=== PATIENT | male | born 1965 | race Caucasian/White ===

== ENCOUNTER → 2017-04-18 | Outpatient (CLI) | payer OTHER ==
[~2017-04-18] MED LIST: MONT1TAB3 PO
[2017-04-18 10:33] LABS: BASO % 0.2 %; BASO ABS # 0.01 K/uL (0-0.2); COMPLETE YES; EOS % 1.9 %; HEMATOCRIT 40.3 % (42-52); LYMPH % 22.4 %; LYMPH ABS # 1.06 K/uL (1.2-3.4); MEAN CELL VOLUME 78.6 fL (80-100); MEAN CORPUSCULAR HEMOGLOBIN 24.6 pg (25-34); MEAN CORPUSCULAR HGB CONC 31.3 g/dl (32-36); MEAN PLATELET VOLUME 9.4 fL (7.4-10.4); MONO % 17.3 %; NEUT % 58.2 %; PLATELET COUNT 294 K/uL (130-400); RED BLOOD COUNT 5.13 M/uL (4.7-6.1); WHITE BLOOD COUNT 4.74 K/uL (4.8-10.8)
[2017-04-18 10:45] LABS: ALT/SGPT 34 U/L (12-78); AST/SGOT 26 U/L (15-37); BLOOD UREA NITROGEN 19 mg/dl (7-18); BUN/CREATININE RATIO 14.3 (10-20); CARBON DIOXIDE 31 mmol/L (21-32); CHLORIDE 105 mmol/L (98-107); GLUCOSE 96 mg/dl (70-99); POTASSIUM 4.2 mmol/L (3.5-5.1); SODIUM 138 mmol/L (136-145)
[2017-04-18 10:47] LABS: ALB/GLOB RATIO 1.1 (0.9-2); ALKALINE PHOSPHATASE 74 U/L (45-117); CHOLESTEROL 136 mg/dl (0-200); CHOLESTEROL/HDL RATIO 4.1; HDL CHOLESTEROL 33 mg/dl; LDL CHOLESTEROL CALCULATED 84 mg/dl; TRIGLYCERIDES 97 mg/dl (0-150); VERY LOW DENSITY LIPOPROT CALC 19 mg/dl
== END | disposition home or self-care (01) ==
LOC: C.LAB 09:37
PROVIDERS: ATTEND Physician Assistant Medical
DX: Z00.00 Encounter for general adult medical examination without abnormal findings (principal)

== ENCOUNTER → 2017-04-29 | Outpatient (CLI) | payer OTHER | END | disposition home or self-care (01) | LOC: C.RDSM 14:13 | PROVIDERS: ATTEND Physical Medicine & Rehabilitation Sports Medicine | DX: M17.12 Unilateral primary osteoarthritis, left knee (principal) ==

== ENCOUNTER → 2017-10-01 | Outpatient (CLI) | payer OTHER ==
[2017-10-01 12:50] LABS: BASO % 0.2 %; BASO ABS # 0.01 K/uL (0-0.2); EOS ABS # 0.08 K/uL (0-0.5); HEMATOCRIT 40.7 % (42-52); HEMOGLOBIN 13.3 g/dL (14.0-18.0); IG# 0.01 K/uL (0.00-0.02); LYMPH % 27.1 %; MEAN CELL VOLUME 77.7 fL (80-100); MEAN CORPUSCULAR HEMOGLOBIN 25.4 pg (25-34); MEAN CORPUSCULAR HGB CONC 32.7 g/dl (32-36); MEAN PLATELET VOLUME 9.8 fL (7.4-10.4); MONO % 12.6 %; MONO ABS # 0.51 K/uL (0.11-0.59); NEUT % 57.9 %; NEUT ABS # 2.35 K/uL (1.4-6.5); PLATELET COUNT 302 K/uL (130-400); RED CELL DISTRIBUTION WIDTH CV 15.3 % (11.5-14.5); RED CELL DISTRIBUTION WIDTH SD 43.1 fL (36.4-46.3); WHITE BLOOD COUNT 4.06 K/uL (4.8-10.8)
== END | disposition home or self-care (01) ==
LOC: C.LABBFT 08:55
PROVIDERS: ATTEND Physician Assistant Medical
DX: D64.9 Anemia, unspecified (principal); Z12.5 Encounter for screening for malignant neoplasm of prostate

== ENCOUNTER → 2017-11-01 | Day surgery (SDC) | payer OTHER ==
[2017-10-21 10:43] VITALS: BMI 34.0
[~2017-11-01] VITALS: Ht 185.4 cm; Wt 118.2 kg
[~2017-11-01] MED LIST changes: +ATOR10TA82 PO; +EpHEDrine SULFATE 50MG/5ML SYR ONE; +FENTANYL CITRATE INJ 50 MCG/1 ML 2 ML VIAL ONE; +LIDOCAINE HCL 2% 2 ML VIAL (20MG/ML) ONE; +MIDAZOLAM HCL 1 MG/ML 2ML VIAL ONE; -MONT1TAB3 PO; +PROPOFOL IV EMULSION 10 MG/ML 20 ML VIAL IV ONE; +SODIUM CHLORIDE 0.9% 500ML 500 ML IV ONE
[2017-11-01 07:38] VITALS: Ht 185.4 cm; Wt 118.2 kg
[2017-11-01 07:43] VITALS: TEMP 36.2
--- NOTE | 2017-11-01 08:13 | Endo History and Physical ---
History & Physical Date of Service: Nov 01, 2017. Chief Complaint: IRON DEFICIENCY ANEMIA Referring Physician: DR. ALEXIS GOMEZ History of Present Illness 52 yo CM who presents for EGD and colonoscopy secondary to iron deficiency anemia. Past Surgical History Hx Cardiac Surgery: No Hx Internal Defibrillator: No Hx Pacemaker: No Hx Abdominal Surgery: No Hx of Implantable Prosthesis: No Hx Post-Op Nausea and Vomiting: No Hx Cancer Surgery: No Hx Thoracic Surgery: No Hx Orthopedic: Yes (RT SHOULDER ARTHROSCOPY; LEFT HAND FINGER INDEX/MIDDLE FINGER) Hx Urinary Tract Surgery: Yes (VASECTOMY) Family History Polyp Social History Smoking Status: Never Smoker Hx Substance Use: No Hx Alcohol Use: Yes (OCCASIONALLY) Allergies Coded Allergies: Penicillins (Verified Allergy, Intermediate, RASH, 10/21/17) Current Medications Reported Home Medications Medications Dose Route/Sig Max Daily Dose Days Date Category Lipitor (Atorvastatin Calcium) 10 Mg Tab 10 Mg PO HS 10/21/17 Reported Vital Signs Weight (Kilograms): 118.18 Height (Feet): 6 Height (Inches): 1 Date Time Temp Pulse Resp B/P (MAP) Pulse Ox O2 Delivery O2 Flow Rate FiO2 11/01/17 07:43 36.2 62 18 124/77 (93) 98 Nasal Cannula Physical Exam General Appearance: WD/WN, no apparent distress Respiratory/Chest: Auscultation: breath sounds normal Cardiovascular: Heart Auscultation: RRR Abdomen: Bowel Sounds: normal Inspection & Palpation: soft, non-distended, no tenderness, guarding & rebound Assessment and Plan Assessment: 52 yo CM who presents for EGD and colonoscopy secondary to iron deficiency anemia. Plan: Proceed with EGD and colonoscopy.
--- NOTE | 2017-11-01 08:53 | Discharge Instructions ---
Endoscopy Patient Instructions Date / Procedure(s) Performed Nov 01, 2017. Colonoscopy, EGD Allergy Information Coded Allergies: Penicillins (Verified Allergy, Intermediate, RASH, 10/21/17) Discharge Date / Findings Nov 01, 2017. EGD: Duodenal biopsies Colonoscopy: Colon polyp, Diverticulosis, Internal hemorrhoids Medication Instructions OK to resume all medications today as prescribed Reported Home Medications Medications Dose Route/Sig Max Daily Dose Days Date Category Lipitor (Atorvastatin Calcium) 10 Mg Tab 10 Mg PO HS 10/21/17 Reported Provider Instructions Activity Restrictions - No exercising or heavy lifting for 24 hours. - Do not drink alcohol the day of the procedure. - Do not drive a car or operate machinery until the day after the procedure. - Do not make any important decisions or sign important papers in 24 hours after the procedure. Following Day: - Return to full activity which may include returning to work/school. Diet Start your diet with liquids and light foods (jello, soup, juice, toast). Then eat your usual diet if not nauseated. Treatment For Common After Affects For mild abdominal pain, bloating, or excessive gas: - Rest - Eat lightly - Lie on right side Follow-Up Information Follow-up with DR. ALEXIS GOMEZ as scheduled Anesthesia Information What You Should Know You have had a procedure that required some medicine to reduce anxiety and discomfort. This treatment is called moderate sedation. After receiving the treatment, you may be sleepy, but you will be able to breathe on your own. The effects of the treatment may last for several hours. Follow these instructions along with Activity/Diet recommendations noted above: * Do NOT do anything where dizziness or clumsiness would be dangerous. * Rest quietly at home today, then you can be up and about tomorrow. * Have a responsible person stay with you the rest of today. * You may have had an I.V. today. If so, you may take the dressing off later today. Recommendations Call your doctor if: * Trouble breathing * Continuous vomiting for more than 24 hours * Temperature above 101 degrees * Severe abdominal pain or bloating * Pain not relieved by pain medicine ordered * There is increased drainage or redness from any incision * A large amount of rectal bleeding greater than 2-3 tablespoons. (If you had a polyp/s removed or have hemorrhoids, a small amount of blood - from the rectum is to be expected.) * You have any unanswered questions or concerns. IN THE EVENT OF A SERIOUS EMERGENCY, GO TO THE NEAREST EMERGENCY ROOM Your discharge instructions were prepared by provider Daron Schroeder. Patient Instructions Signature Page Brayan Roche Patient (or Guardian) Signature/Date: I have read and understand the instructions given to me by my caregivers. Caregiver/RN/Doctor Signature/Date: The above-named patient and/or guardian has received patient instructions on this date. + Original Patient Signature Page (only) stays with chart. Please make copy for patient.
[2017-11-01 09:23] VITALS: BP 116/70; PULSE 53; O2SAT 98
--- NOTE | 2017-11-01 09:34 | Anesthesiology Progress Note ---
Anesthesia Post Op Note Date & Time Nov 01, 2017 at 09:34 Vital Signs Pain Intensity: 0 Vital Signs Past 12 Hours Date Time Temp Pulse Resp B/P (MAP) Pulse Ox O2 Delivery O2 Flow Rate FiO2 11/01/17 09:23 53 18 116/70 (85) 98 Room Air 11/01/17 09:08 62 16 110/83 (92) 97 Room Air 11/01/17 08:53 68 16 105/61 (76) 97 Room Air 11/01/17 07:43 36.2 62 18 124/77 (93) 98 Nasal Cannula Notes Mental Status: alert / awake / arousable, participated in evaluation Pt Amnestic to Procedure: Yes Nausea / Vomiting: adequately controlled Pain: adequately controlled Airway Patency, RR, SpO2: stable & adequate BP & HR: stable & adequate Hydration State: stable & adequate Anesthetic Complications: no major complications apparent
--- NOTE | 2017-11-05 09:26 | GI REPORT ---
Procedure Date: 11/01/2017 8:18 AM Procedure: Colonoscopy Indications: Iron deficiency anemia Medicines: Monitored Anesthesia Care Complications: No immediate complications. Estimated Blood Loss: Estimated blood loss: none. Procedure: Pre-Anesthesia Assessment: - Prior to the procedure, a History and Physical was performed, and patient medications and allergies were reviewed. The patient's tolerance of previous anesthesia was also reviewed. The risks and benefits of the procedure and the sedation options and risks were discussed with the patient. All questions were answered, and informed consent was obtained. Prior Anticoagulants: The patient has taken no previous anticoagulant or antiplatelet agents. ASA Grade Assessment: II - A patient with mild systemic disease. After reviewing the risks and benefits, the patient was deemed in satisfactory condition to undergo the procedure. After I obtained informed consent, the scope was passed under direct vision. Throughout the procedure, the patient's blood pressure, pulse, and oxygen saturations were monitored continuously. The scope was introduced through the anus and advanced to the terminal ileum. The colonoscopy was performed without difficulty. The patient tolerated the procedure well. The quality of the bowel preparation was good. The terminal ileum, ileocecal valve, appendiceal orifice, and rectum were photographed. Findings: The perianal and digital rectal examinations were normal. A 4 mm polyp was found in the ascending colon. The polyp was sessile. The polyp was removed with a hot snare. Resection and retrieval were complete. Multiple small-mouthed diverticula were found in the sigmoid colon. Non-bleeding internal hemorrhoids were found during retroflexion. The hemorrhoids were small. Impression: - One 4 mm polyp in the ascending colon, removed with a hot snare. Resected and retrieved. - Diverticulosis in the sigmoid colon. - Non-bleeding internal hemorrhoids. Recommendation: - Resume previous diet. - Continue present medications. - Repeat colonoscopy for surveillance based on pathology results. - Return to primary care physician as previously scheduled. Daron Schroeder DO 11/01/2017 8:52:01 AM This report has been signed electronically. Note Initiated On: 11/01/2017 8:18 AM I attest to the content of the Intraoperative Record and orders documented therein, exceptions below
--- NOTE | 2017-11-05 09:26 | GI REPORT ---
Procedure Date: 11/01/2017 8:18 AM Procedure: Upper GI endoscopy Indications: Iron deficiency anemia Medicines: Monitored Anesthesia Care Complications: No immediate complications. Estimated Blood Loss: Estimated blood loss: none. Procedure: Pre-Anesthesia Assessment: - Prior to the procedure, a History and Physical was performed, and patient medications and allergies were reviewed. The patient's tolerance of previous anesthesia was also reviewed. The risks and benefits of the procedure and the sedation options and risks were discussed with the patient. All questions were answered, and informed consent was obtained. Prior Anticoagulants: The patient has taken no previous anticoagulant or antiplatelet agents. ASA Grade Assessment: II - A patient with mild systemic disease. After reviewing the risks and benefits, the patient was deemed in satisfactory condition to undergo the procedure. After obtaining informed consent, the endoscope was passed under direct vision. Throughout the procedure, the patient's blood pressure, pulse, and oxygen saturations were monitored continuously. The scope was introduced through the mouth, and advanced to the second part of duodenum. The upper GI endoscopy was accomplished without difficulty. The patient tolerated the procedure well. Findings: The esophagus was normal. The stomach was normal. The examined duodenum was normal. Biopsies for histology were taken with a cold forceps for evaluation of celiac disease. Impression: - Normal esophagus. - Normal stomach. - Normal examined duodenum. Biopsied. Recommendation: - Resume previous diet. - Continue present medications. - Await pathology results. - Return to primary care physician as previously scheduled. Daron Schroeder DO 11/01/2017 8:49:27 AM This report has been signed electronically. Note Initiated On: 11/01/2017 8:18 AM I attest to the content of the Intraoperative Record and orders documented therein, exceptions below
== END | disposition home or self-care (01) ==
LOC: C.GI 07:16
PROVIDERS: ATTEND Internal Medicine
DX: D50.9 Iron deficiency anemia, unspecified (principal); D12.2 Benign neoplasm of ascending colon; K57.30 Diverticulosis of large intestine without perforation or abscess without bleeding; K64.8 Other hemorrhoids; E66.9 Obesity, unspecified; Z68.34 Body mass index [BMI] 34.0-34.9, adult; Z86.718 Personal history of other venous thrombosis and embolism; Z88.0 Allergy status to penicillin

== ENCOUNTER → 2017-11-27 | Outpatient (CLI) | payer OTHER ==
[~2017-11-27] MED LIST changes: -EpHEDrine SULFATE 50MG/5ML SYR ONE; -FENTANYL CITRATE INJ 50 MCG/1 ML 2 ML VIAL ONE; -LIDOCAINE HCL 2% 2 ML VIAL (20MG/ML) ONE; -MIDAZOLAM HCL 1 MG/ML 2ML VIAL ONE; -PROPOFOL IV EMULSION 10 MG/ML 20 ML VIAL IV ONE; -SODIUM CHLORIDE 0.9% 500ML 500 ML IV ONE
--- NOTE | 2017-11-27 08:32 | DIAGNOSTIC IMAGING REPORT ---
RIGHT LOWER EXTREMITY VENOUS DOPPLER HISTORY: Right leg pain. COMPARISON STUDY: None. FINDINGS: There is normal compressibility, flow, and augmentation within the right lower extremity deep venous system. Occlusive thrombus within the majority of the right greater saphenous vein extending from the level of the ankle to approximately 9 cm from the common femoral vein. IMPRESSION: No DVT within the right lower extremity. Occlusive thrombus within the majority of the right greater saphenous vein. Electronically signed by: Mati Nascimento M.D. 11/27/2017 8:30 AM Dictated Date/Time: 11/27/2017 8:27 AM
== END | disposition home or self-care (01) ==
LOC: C.ULTRBC 08:01
PROVIDERS: ATTEND Internal Medicine
DX: I82.811 Embolism and thrombosis of superficial veins of right lower extremity (principal); D64.9 Anemia, unspecified

== ENCOUNTER → 2018-04-10 | Outpatient (CLI) | payer OTHER ==
[2018-04-10 12:29] LABS: BASO % 0.2 %; BASO ABS # 0.01 K/uL (0-0.2); EOS % 2.4 %; EOS ABS # 0.12 K/uL (0-0.5); HEMATOCRIT 38.7 % (42-52); HEMOGLOBIN 12.6 g/dL (14.0-18.0); IG# 0.01 K/uL (0.00-0.02); LYMPH % 27.1 %; LYMPH ABS # 1.38 K/uL (1.2-3.4); MEAN CORPUSCULAR HEMOGLOBIN 26.4 pg (25-34); MEAN CORPUSCULAR HGB CONC 32.6 g/dl (32-36); MEAN PLATELET VOLUME 9.6 fL (7.4-10.4); MONO % 13.9 %; MONO ABS # 0.71 K/uL (0.11-0.59); NEUT % 56.2 %; NEUT ABS # 2.87 K/uL (1.4-6.5); PLATELET COUNT 262 K/uL (130-400); RED CELL DISTRIBUTION WIDTH CV 14.4 % (11.5-14.5); RED CELL DISTRIBUTION WIDTH SD 42.8 fL (36.4-46.3)
[2018-04-10 13:55] LABS: ALBUMIN 3.7 gm/dl (3.4-5.0); ALKALINE PHOSPHATASE 68 U/L (45-117); ALT/SGPT 35 U/L (12-78); AST/SGOT 30 U/L (15-37); BLOOD UREA NITROGEN 23 mg/dl (7-18); CALCIUM 8.7 mg/dl (8.5-10.1); CARBON DIOXIDE 26 mmol/L (21-32); CHOLESTEROL 136 mg/dl (0-200); CREATININE 1.37 mg/dl (0.60-1.40); GLUCOSE 86 mg/dl (70-99); LDL CHOLESTEROL CALCULATED 84 mg/dl; SODIUM 139 mmol/L (136-145); TOTAL PROTEIN 7.1 gm/dl (6.4-8.2); TRANSFERRIN 333 mg/dl (200-360)
== END | disposition home or self-care (01) ==
LOC: C.LABBFT 07:33
PROVIDERS: ATTEND Physician Assistant Medical
DX: D64.9 Anemia, unspecified (principal); E78.5 Hyperlipidemia, unspecified

== ENCOUNTER 2018-11-27 12:01 | Inpatient (IN) ==
[2018-11-27] MEDS ORDERED: HYDROmorphone INJ 0.5 MG/0.5 ML SYR IV STA (12:21)
[2018-11-27] MEDS ORDERED: ONDANSETRON INJ 2 MG/ML 2 ML VIAL IV STA (12:21)
[2018-11-27] MEDS ORDERED: SODIUM CHLORIDE 0.9% 1000ML 1,000 ML IV SCH (12:30)
[2018-11-27 12:41] LABS: Basophils # (auto) 0.01 K/uL (0-0.2); Basophils % (auto) 0.2 %; Eosinophils # (auto) 0.02 K/uL (0-0.5); Eosinophils % (auto) 0.3 %; Hemoglobin 13.7 g/dL (14.0-18.0); Immature Granulocytes # (auto) 0.01 K/uL (0.00-0.02); Immature Granulocytes % (auto) 0.2 %; Lymphocytes # (auto) 0.68 K/uL (1.2-3.4); Lymphocytes % (auto) 10.9 %; Mean Corpuscular Hgb Conc 34.3 g/dL (32-36); Mean Corpuscular Volume 74.8 fL (80-100); Mean Platelet Volume 9.4 fL (7.4-10.4); Monocytes # (auto) 0.64 K/uL (0.11-0.59); Monocytes % (auto) 10.3 %; Neutrophils # (auto) 4.86 K/uL (1.4-6.5); Neutrophils % (auto) 78.1 %; Platelet Count 301 K/uL (130-400); RDW Coefficient of Variation 20.5 % (11.5-14.5); RDW Standard Deviation 55.5 fL (36.4-46.3); Red Blood Count 5.35 M/uL (4.7-6.1); White Blood Count 6.22 K/uL (4.8-10.8)
[2018-11-27 13:00] LABS: Albumin Level 4.1 gm/dl (3.4-5.0); Anisocytosis Present; BUN Creatinine Ratio 8.8 (10-20); Calcium 9.6 mg/dl (8.5-10.1); Creatinine Clr Calc Pharmacy 75.2 ml/min; Est GFR (African American) 59.7; Est GFR (Non-African American) 51.5; Ovalocytes 1+; Poikilocytosis Present; Potassium 3.6 mmol/L (3.5-5.1)
[2018-11-27 13:03] LABS: Albumin Globulin Ratio 1.2 (0.9-2); Bilirubin,Total 0.5 mg/dl (0.2-1); Globulin 3.6 gm/dl (2.5-4.0); Total Protein 7.7 gm/dl (6.4-8.2)
--- NOTE | 2018-11-27 13:26 | CT Scan Report ---
ABDOMEN AND PELVIS CT WITHOUT CONTRAST CT DOSE: 866.98 mGy.cm HISTORY: Acute postoperative vomiting. Reported history was several weeks prior. History of recent je junal GIST excision with jejunojejunal anastomosis. vomiting post op eval for obstruction TECHNIQUE: Multiaxial CT images of the abdomen and pelvis were performed without contrast. A dose lo wering technique was utilized adhering to the principles of ALARA. COMPARISON STUDY: Small bowel follow-through study 11/26/2018, MR enterography 09/04/2018, CT 01/17/2018. FINDINGS: Lung bases are generally clear. There is no pneumatosis or pneumoperitoneum. Imaged inferior cardiac chambers are unremarkable with minimal coronary arterial calcifications and trace pericardial effusio n. Gallbladder, liver, spleen and adrenal glands are unremarkable. 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 There is no pancreatic or biliary ductal dilation identified. There is mild nonspecific bilateral perinephric str anding. Kidneys, ureters, prostate and urinary bladder are otherwise unremarkable. Aorta and IVC are within normal limits. No adenopathy. There is retained contrast noted throughout the large and small bowel from yesterday's small bowel fo llow-through study. Hyperdense material is also noted within the gastric lumen and duodenum. There ar e several dilated loops of small bowel about the mid and lower abdomen and pelvis measuring up to 4.0 cm which demonstrate mild wall thickening, mild perienteric stranding and trace interloop edema. The large bowel is predominately decompressed. Colonic diverticulosis. Appendix appears noninflamed. Sut ure material is noted within small bowel of the abdominal left lower quadrant. This appears to be the area of transition from dilated to decompressed small bowel (image 271 series 3) and also nicely see n on the coronal and sagittal images. Surgical scar about the ventral anterior abdomen. Bones appear to be intact. There is an unchanged 2. 3 cm sclerotic lesion of the proximal left femur which is likely benign. Spondylitic spurring and fac et arthrosis of the spine. IMPRESSION: 1. Postoperative changes from a partial small bowel resection with jejunal jejunal anastomosis. 2. Small bowel distention with transition point at the anastomotic site within the left midabdomen ulrich ggestive of partial small bowel obstruction. Associated small bowel wall thickening with perienteric inflammation and mild interloop edema is likely reactive. 3. No pneumatosis or pneumoperitoneum identified. 4. Colonic diverticulosis. Electronically signed by: Macario Salas M.D. 11/27/2018 1:24 PM
--- NOTE | 2018-11-27 13:53 | History & Physical Report ---
Date of Service November 27, 2018 Assessment & Plan (1) Partial small bowel obstruction: Patient is has this partial small bowel obstruction likely related to previous surgery on November 06 where he had a small bowel resection and reanastomosis. He does have some contrast that makes it through to the colon so it is not a complete bowel obstruction although the patient's symptoms are significant he did vomit undigested food products from one day prior. Patient will be kept n.p.o. except chips or sips of pain controlled with intravenous antiemetics and pain medications. And will be hydrated with normal saline containing potassium. After discussion with general surgical on-call he is recommending we give 1 dose of dexamethasone stable condition the inflammation Dr. Garcia did visit the patient in the emergency department and is not anxious to proceed with surgical intervention at this time feeling that this is the highest time for surgical inflammation causing a tight area based upon swelling. 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 He is been on Multitak and Xarelto since that time. With the upcoming surrounding surgery and was recommend that he maintain the Xarelto even though he is been in sinus rhythm. The patient has a significant family history of her mother with a pulmonary embolism felt to be induced by hormones a daughter who had a pulmonary embolism although negative thrombophilia screen in 2 maternal aunts both who had a thrombophilia surrounding cancer. Given his previous superficial thrombophlebitis and his current diagnosis of gastric was recommended he stay on Xarelto. Xarelto however is held at this time in lieu of instituting heparin therapy on 11/28 in the outside chance he would need a surgical intervention History of Present Illness Primary Care Provider: Tano Pete MD This patient presents with intractable nausea vomiting associate with partial bowel obstruction. Patient had small bowel resection on November 06 at [facility] for a GI ST tumor of the small bowel which was 3.8 cm he had a estevan postoperative course requiring an NG tube placed to. He released from the hospital 6 days after his initial surgery but has had intermittent nausea since that time. Today he vomited undigested foodstuffs from [address] scan performed in the ER did confirm a partial small bowel obstruction. The patient did require parenteral pain control and antiemetics. Patient is lost 18 pounds and is been unable to adequately keep down p.o. intake. Patient be kept overnight for hydration and retrial of oral intake with the surgical consultation Allergies Allergy/AdvReac Type Severity Reaction Status Date / Time Penicillins Allergy Intermediate RASH Verified 11/27/18 12:58 Home Medications Home Medications Medication Instructions Recorded Confirmed Type Xarelto 20 mg PO DAILY 07/08/18 11/27/18 History atorvastatin 10 mg PO HS 07/08/18 11/27/18 History dronedarone [Multaq] 400 mg PO DAILY 11/27/18 11/27/18 History Past Med/Surg History Medical History Anemia IRON DEFICIENCY Atrial fibrillation Hyperlipidemia Superficial thrombophlebitis of both legs H/O Surgical History H/O colonoscopy with polypectomy History of arthroscopy RIGHT SHOULDER History of colonoscopy History of nasal septoplasty Social History Preferred Language: Japanese Beliefs That Will Affect Care: None Current Living Situation: Spouse Feels Safe at Home: Yes Smoking Status: Never smoker Hx Alcohol Use: Yes Hx Substance Use: No Review of Systems ROS: well nourished well developed. No double vision blurry vision No problems with speech or swallowing No palpitations, chest pain or pressure No Wheezing or breathing issues Centralized abdominal pain with nausea and vomiting of undigested foodstuffs. Only small amounts of flatus No burning urine urine frequency or changes in color No focal joint pain or muscle pain No skin rashes or oral lesions No unusual bruising or bleeding No focused back pain or numbness or loss of strength No changes in memory or confusion Physical Exam Vital Signs (Past 24 Hours): Last Vital Signs Pulse 72 11/27/18 13:01 Resp 14 11/27/18 13:01 BP 122/76 11/27/18 13:01 Pulse Ox 100 11/27/18 13:01 The patient appeared well nourished and normally developed. Vital signs as documented. Head exam is unremarkable. normocephalic, atraumatic Neck is without jugular venous distension, thyromegaly, or lymphademopathy Lungs are clear to auscultation and percussion. Cardiac exam reveals Rhythm is regular. First and second heart sounds normal. Abdominal exam reveals hyperactive bowel sounds, tympanitic distended well- healed surgical scars Extremities are nonedematous and both pedal pulses are present Neurologic exam is A&Ox3, no focal deficits, strength is equal bilateral Psychologically seems neither anxious or depressed Skin is warm Dry without bruises or lesions Results & Data Diagnostic Findings CT abdomen pelvis . 1. Postoperative changes from a partial small bowel resection with jejunal jejunal anastomosis. 2. Small bowel distention with transition point at the anastomotic site within the left midabdomen suggestive of partial small bowel obstruction. Associated small bowel wall thickening with perienteric inflammation and mild interloop edema is likely reactive. 3. No pneumatosis or pneumoperitoneum identified. 4. Colonic diverticulosis.
--- NOTE | 2018-11-27 14:47 | Surgery Consultation ---
Date of Consultation November 27, 2018 Assessment & Plan (1) Partial small bowel obstruction: Patient is approximately 3 weeks postop. Could be postop edema at the anastomotic site. Would recommend conservative therapy for at least another 2-3 weeks if possible. We will keep him n.p.o. with ice chips today and repeat his KUB tomorrow. As symptoms improve we will try a clear liquid diet. We discussed that he may need revision of the anastomosis but would wait at least another 2-3 weeks. Patient agreeable to the plan. We will also give a couple doses of Decadron. We will follow along closely. (2) Gastrointestinal stromal tumor (GIST): History of Present Illness History of Present Illness Patient is here about 3 weeks status post laparoscopic small bowel resection for a gist tumor. He has had intermittent issues ever since primarily with abdominal distention nausea food intolerance with occasional vomiting. He presents to the ER today with abdominal distention and one bout of emesis. He was having some discomfort but that has since improved. He has been having intermittent flatus and bowel movements although certainly not back to normal yet. Allergies Allergy/AdvReac Type Severity Reaction Status Date / Time Penicillins Allergy Intermediate RASH Verified 11/27/18 12:58 Home Medications Home Medications Medication Instructions Recorded Confirmed Type Xarelto 20 mg PO DAILY 07/08/18 11/27/18 History atorvastatin 10 mg PO HS 07/08/18 11/27/18 History dronedarone [Multaq] 400 mg PO DAILY 11/27/18 11/27/18 History Patient History Medical History Anemia IRON DEFICIENCY Atrial fibrillation Hyperlipidemia Superficial thrombophlebitis of both legs H/O Surgical History H/O colonoscopy with polypectomy History of arthroscopy RIGHT SHOULDER History of colonoscopy History of nasal septoplasty Social History Preferred Language: Croatian Beliefs That Will Affect Care: None Current Living Situation: Spouse Feels Safe at Home: Yes Smoking Status: Never smoker Hx Alcohol Use: Yes Hx Substance Use: No Review of Systems Constitutional: + weight loss Gastrointestinal: as per Subjective / HPI, + bloating, + nausea and + cramping Physical Exam Vital Signs (Past 24 Hours): Last Vital Signs Pulse 72 04/11/19 14:30 Resp 22 11/27/18 14:30 BP 135/84 11/27/18 14:30 Pulse Ox 96 11/27/18 14:30 Physical Exam: Alert and oriented x3 no acute distress. HEENT: Dry MM's. Heart: RRR Lungs: CTA b/l abd: soft. mild distension. wounds a c/d/i. no sign of infection ext: no c/c/e
[2018-11-27 14:59] LABS: Appearance Urine Clear (Clear); Bacteria Urine Automated Negative (Negative); Bilirubin Urine Negative (Negative); Blood Urine Negative (Negative); Color Urine Dark Yellow; Glucose Urine UA Negative (Negative); Ketones Urine Trace (Negative); Leukocyte Esterase Urine Negative (Negative); Nitrite Urine Negative (Negative); RBC Urine Automated 0-4 /hpf (0-4); Urobilinogen Urine Negative (Negative)
[2018-11-27 15:03] LABS: Protein Urine Trace (Negative)
[2018-11-27] MEDS ORDERED: HYDROmorphone INJ 1 MG/ML SYRINGE IV PRN (16:05)
[2018-11-27] MEDS ORDERED: ONDANSETRON INJ 2 MG/ML 2 ML VIAL IV PRN (16:05)
[2018-11-27] MEDS ORDERED: PROMETHAZINE HCL 12.5 MG in SODIUM CHLORIDE 0.9% 50 ML IV PRN (16:05)
[2018-11-27] MEDS ORDERED: HYDROmorphone INJ 0.5 MG/0.5 ML SYR IV PRN (16:05)
[2018-11-27] MEDS ORDERED: DEXAMETHASONE SOD PHOSPHATE 4 MG in SYRINGE 0 ML IV ONE (16:30)
[2018-11-27] MEDS: NSS + 20MEQ KCL 20 MEQ/1,000 ML BAG IV SCH (16:52)
--- NOTE | 2018-11-27 19:21 | Emergency Department Note ---
Entered by Yash Paredes acting as a scribe for History of Present Illness General Chief complaint: Abdominal Pain Stated complaint: abd pain Source: patient Mode of arrival: ambulatory History of Present Illness Provider complaint: Abdominal Pain Onset (ago): day(s) 6 Location: abdomen Severity: severe Pain Consistency: + constant Associated symptoms: no chest pain, no fever/chills and no shortness of breath Patient is a 53 year old male who presents himself to the ER with complain of abdominal pain beginning 6 days ago. Patient recently had a gastrointestinal tumor resected at [facility] 3 week ago. Post operation patient states medical staff thought he had an ileus. Beginning this last Saturday he started having symptoms of vomiting. Patient was discharged home 6 days post operation and states he has been having severe abdominal pain since then. Patient states the pain is specifically in the epigastric region. Patient states that this last Saturday he went to a basketball game and again the intense pain came back in waves. He notes the pain to be like cramps in nature. Patient rep orts having liquid type stool. Since morning of today he states he has not had a bowel movement and that he had another episode of vomiting before he came to the ER which made him feel slightly better. Patient denies fever, chest pain and SOB. Home Medications Home Medications Medication Instructions Recorded Confirmed Type Xarelto 20 mg PO DAILY 07/08/18 11/27/18 History atorvastatin 10 mg PO HS 07/08/18 11/27/18 History dronedarone [Multaq] 400 mg PO DAILY 11/27/18 11/27/18 History Allergies Allergy/AdvReac Type Severity Reaction Status Date / Time Penicillins Allergy Intermediate RASH Verified 11/27/18 12:58 Past Med/Surg History Medical History Anemia IRON DEFICIENCY Atrial fibrillation Hyperlipidemia Superficial thrombophlebitis of both legs H/O Surgical History H/O colonoscopy with polypectomy History of arthroscopy RIGHT SHOULDER History of colonoscopy History of nasal septoplasty Social History Preferred Language: Tajik Communication Ability: Effective Sound Mixer Required: No Beliefs That Will Affect Care: None Current Living Situation: Spouse Feels Safe at Home: Yes Safety Concerns: Feels Safe At This Time Smoking Status: Never smoker Hx Alcohol Use: Yes Hx Substance Use: No Review of Systems See HPI for pertinent positives & negatives. and A total of 10 systems reviewed and were otherwise negative Physical Exam Vital Signs Vital Signs - 24 hr 11/27/18 12:11 11/27/18 12:36 11/27/18 13:01 Temperature Temperature Source Oral Sepsis Recent Fever Within 48 Hours No Sepsis Action Taken by Nursing No Action Required Pulse Rate 93 H 72 Pulse Rate [Apical] 78 Pulse Rate [Right Finger] Pulse Rate from SpO2 Sensor 74 Pulse Rhythm Regular Pulse Rhythm [Right Finger] Pulse Strength Normal Pulse Strength [Right Finger] Respiratory Rate 16 19 14 Respiratory Effort / Characteristics Non-Labored Respiratory Depth Normal Normal Respiratory Pattern Regular Blood Pressure 126/80 122/76 Blood Pressure [Left Arm] 127/90 Blood Pressure Mean 95 91 Blood Pressure Mean [Left Arm] 102 Blood Pressure Position Sitting Blood Pressure Position [Left Arm] Pulse Oximetry 100 100 100 Oxygen Delivery Method Room Air Room Air Room Air 11/27/18 13:30 11/27/18 14:00 11/27/18 14:30 Temperature Temperature Source Sepsis Recent Fever Within 48 Hours Sepsis Action Taken by Nursing Pulse Rate 70 73 72 Pulse Rate [Apical] Pulse Rate [Right Finger] Pulse Rate from SpO2 Sensor 71 73 72 Pulse Rhythm Pulse Rhythm [Right Finger] Pulse Strength Pulse Strength [Right Finger] Respiratory Rate 15 24 22 Respiratory Effort / Characteristics Respiratory Depth Respiratory Pattern Blood Pressure 130/80 122/82 135/84 Blood Pressure [Left Arm] Blood Pressure Mean 96 95 101 Blood Pressure Mean [Left Arm] Blood Pressure Position Blood Pressure Position [Left Arm] Pulse Oximetry 94 96 96 Oxygen Delivery Method Room Air Room Air Room Air 11/27/18 15:00 11/27/18 15:31 11/27/18 16:10 Temperature 36.7 C Temperature Source Oral Sepsis Recent Fever Within 48 Hours Sepsis Action Taken by Nursing Pulse Rate 72 73 Pulse Rate [Apical] Pulse Rate [Right Finger] 68 Pulse Rate from SpO2 Sensor 74 Pulse Rhythm Pulse Rhythm [Right Finger] Regular Pulse Strength Pulse Strength [Right Finger] Normal Respiratory Rate 16 17 20 Respiratory Effort / Characteristics Non-Labored Spontaneous Respiratory Depth Normal Respiratory Pattern Regular Blood Pressure 136/89 129/81 Blood Pressure [Left Arm] 125/81 Blood Pressure Mean 104 97 Blood Pressure Mean [Left Arm] 95 Blood Pressure Position Blood Pressure Position [Left Arm] Lying Pulse Oximetry 94 98 Oxygen Delivery Method Room Air Room Air 11/27/18 16:15 Temperature Temperature Source Sepsis Recent Fever Within 48 Hours Sepsis Action Taken by Nursing Pulse Rate Pulse Rate [Apical] Pulse Rate [Right Finger] Pulse Rate from SpO2 Sensor Pulse Rhythm Pulse Rhythm [Right Finger] Pulse Strength Pulse Strength [Right Finger] Respiratory Rate Respiratory Effort / Characteristics Non-Labored Spontaneous Respiratory Depth Normal Respiratory Pattern Regular Blood Pressure Blood Pressure [Left Arm] Blood Pressure Mean Blood Pressure Mean [Left Arm] Blood Pressure Position Blood Pressure Position [Left Arm] Pulse Oximetry Oxygen Delivery Method Room Air Constitutional: Vital signs reviewed. Eyes: Pupils are equal round reactive to light. Conjunctiva are noninjected. ENT: Pharynx is clear without erythema or exudate. Mucous membranes are dry. Neck supple without meningeal signs. Respiratory: Clear to auscultation bilaterally. Breath sounds are equal bilaterally. Cardiovascular: Regular rate and rhythm. No rubs or gallops. GI: Diffusely tender with tympany, increased bowel sounds, laparoscopic scars, CDI Bowel sounds are present. Musculoskeletal: No peripheral edema. No lower extremity tenderness. Integumentary: No cyanosis. Neurological: The patient is awake and alert. No focal deficits. Psychiatric: Normal affect. Course 1210: Past medical records reviewed. The patient was evaluated in room A3, and a complete history and physical examination were performed. 1334: I reviewed test results with the patient. Patient requested that we speak to Dr. Garcia of surgery for recommendation. 1350: IVETH Dinero spoke to Dr. Roche for admission. Patient has agreed for admission and has verbalized agreement of the treatment. Consultations Consultation #1: IVETH Dinero Time: 13:50 Administered Medications Hydromorphone HCl (Dilaudid) 0.5 mg IV Q3H PRN PRN Reason: Pain Stop: 12/11/18 16:04 Last Admin: 11/27/18 16:28 Dose: 0.5 mg Documented by: [id number] Potassium Chloride/Sodium Chloride (Normal Saline W/20 Meq Kcl) 20 meq in 1,000 mls @ 125 mls/hr IV .Q8H MAXI Stop: 12/27/18 16:04 Last Admin: 11/27/18 16:52 Dose: 125 mls/hr Documented by: [id number] Discontinued Medications Hydromorphone HCl (Dilaudid) 0.5 mg IV NOW STA Stop: 11/27/18 12:22 Last Admin: 11/27/18 12:40 Dose: 0.5 mg Documented by: [id number] Sodium Chloride (Nss 1000ml) 1,000 mls @ 999 mls/hr IV .Q1H1M MAXI Stop: 11/27/18 13:30 Last Infusion: 11/27/18 13:39 Dose: 0 mls/hr Documented by: [id number] Admin: 11/27/18 12:38 Dose: 999 mls/hr Documented by: [id number] Dexamethasone Sodium Phosphate (4 mg/ Syringe) 1 mls @ 1 mls/min IV NOW ONE Stop: 11/27/18 16:31 Last Admin: 11/27/18 16:57 Dose: 1 mls/min Documented by: [id number] Ondansetron HCl (Zofran) 4 mg IV NOW STA Stop: 11/27/18 12:22 Last Admin: 11/27/18 12:38 Dose: 4 mg Documented by: [id number] Medical Decision Making Differential Diagnosis SBO, Partial obstruction, ileus, post op pain, dehydration Medical Records Attestation: I reviewed the patient's medical records. The Xray of the abdomen on November 26 showed mildly dilated loops of small bowel without obstruction. Home Medications Current Medication List: was personally reviewed by me Laboratory Data Attestation: I reviewed the patient's lab results. Result diagrams: 11/27/18 12:31 11/27/18 12:31 Lab Results 11/27/18 11/27/18 11/27/18 Range/Units 12:31 12:31 14:45 WBC 6.22 (4.8-10.8) K/uL RBC 5.35 (4.7-6.1) M/uL Hgb 13.7 L (14.0-18.0) g/dL Hct 40.0 L (42-52) % MCV 74.8 L (80-100) fL MCH 25.6 (25-34) pg MCHC 34.3 (32-36) g/dL RDW Std Deviation 55.5 H (36.4-46.3) fL RDW Coeff of Chris 20.5 H (11.5-14.5) % Plt Count 301 (130-400) K/uL MPV 9.4 (7.4-10.4) fL Immature Gran % (Auto) 0.2 % Neut % (Auto) 78.1 % Lymph % (Auto) 10.9 % Robertson % (Auto) 10.3 % Eos % (Auto) 0.3 % Baso % (Auto) 0.2 % Immature Gran # (Auto) 0.01 (0.00-0.02) K/uL Neut # (Auto) 4.86 (1.4-6.5) K/uL Lymph # (Auto) 0.68 L (1.2-3.4) K/uL Robertson # (Auto) 0.64 H (0.11-0.59) K/uL Eos # (Auto) 0.02 (0-0.5) K/uL Baso # (Auto) 0.01 (0-0.2) K/uL Poikilocytosis Present Anisocytosis Present Ovalocytes 1+ Sodium 141 (136-145) mmol/L Potassium 3.6 (3.5-5.1) mmol/L Chloride 106 (98-107) mmol/L Carbon Dioxide 27 (21-32) mmol/L Anion Gap 7.0 (3-11) BUN 14 (7-18) mg/dl Creatinine 1.53 H (0.6-1.4) mg/dl Est Cr Clr Drug Dosing 75.2 ml/min Est GFR ( Amer) 59.7 Est GFR (Non-Af Amer) 51.5 BUN/Creatinine Ratio 8.8 L (10-20) Glucose 106 H (70-99) mg/dl Calcium 9.6 (8.5-10.1) mg/dl Total Bilirubin 0.5 (0.2-1) mg/dl AST 28 (15-37) U/L ALT 69 (12-78) U/L Alkaline Phosphatase 82 (45-117) U/L Total Protein 7.7 (6.4-8.2) gm/dl Albumin 4.1 (3.4-5.0) gm/dl Globulin 3.6 (2.5-4.0) gm/dl Albumin/Globulin Ratio 1.2 (0.9-2) Lipase 187 (73-393) U/L Urine Color Urine Appearance (Clear) Urine pH (4.5-7.5) POC Urine pH 6 (4.5-7.5) Ur Specific [place] (1.000-1.030) Urine Protein (Negative) POC Urine Protein Negative (Negative) Urine Glucose (UA) (Negative) POC Ur Glucose (UA) Normal (Normal) Urine Ketones (Negative) POC Urine Ketones 1+ (Small) H (Negative) Urine Blood (Negative) POC Urine Blood Negative (Negative) Urine Nitrite (Negative) POC Urine Nitrite Negative (Negative) Urine Bilirubin (Negative) POC Urine Bilirubin Negative (Negative) Urine Urobilinogen (Negative) POC Urine Urobilinogen Normal (Normal) Ur Leukocyte Esterase (Negative) POC U Leukocyte Esteras Negative (Negative) Urine WBC (Auto) (0-5) /hpf Urine RBC (Auto) (0-4) /hpf U Hyaline Cast (Auto) (0-5) /lpf U Epithel Cells (Auto) (0-5) /lpf Urine Bacteria (Auto) (Negative) 11/27/18 Range/Units 14:45 WBC (4.8-10.8) K/uL RBC (4.7-6.1) M/uL Hgb (14.0-18.0) g/dL Hct (42-52) % MCV (80-100) fL MCH (25-34) pg MCHC (32-36) g/dL RDW Std Deviation (36.4-46.3) fL RDW Coeff of Chris (11.5-14.5) % Plt Count (130-400) K/uL MPV (7.4-10.4) fL Immature Gran % (Auto) % Neut % (Auto) % Lymph % (Auto) % Robertson % (Auto) % Eos % (Auto) % Baso % (Auto) % Immature Gran # (Auto) (0.00-0.02) K/uL Neut # (Auto) (1.4-6.5) K/uL Lymph # (Auto) (1.2-3.4) K/uL Robertson # (Auto) (0.11-0.59) K/uL Eos # (Auto) (0-0.5) K/uL Baso # (Auto) (0-0.2) K/uL Poikilocytosis Anisocytosis Ovalocytes Sodium (136-145) mmol/L Potassium (3.5-5.1) mmol/L Chloride (98-107) mmol/L Carbon Dioxide (21-32) mmol/L Anion Gap (3-11) BUN (7-18) mg/dl Creatinine (0.6-1.4) mg/dl Est Cr Clr Drug Dosing ml/min Est GFR ( Amer) Est GFR (Non-Af Amer) BUN/Creatinine Ratio (10-20) Glucose (70-99) mg/dl Calcium (8.5-10.1) mg/dl Total Bilirubin (0.2-1) mg/dl AST (15-37) U/L ALT (12-78) U/L Alkaline Phosphatase (45-117) U/L Total Protein (6.4-8.2) gm/dl Albumin (3.4-5.0) gm/dl Globulin (2.5-4.0) gm/dl Albumin/Globulin Ratio (0.9-2) Lipase (73-393) U/L Urine Color Dark Yellow Urine Appearance Clear (Clear) Urine pH 8.0 H (4.5-7.5) POC Urine pH (4.5-7.5) Ur Specific [place] 1.030 (1.000-1.030) Urine Protein Trace H (Negative) POC Urine Protein (Negative) Urine Glucose (UA) Negative (Negative) POC Ur Glucose (UA) (Normal) Urine Ketones Trace H (Negative) POC Urine Ketones (Negative) Urine Blood Negative (Negative) POC Urine Blood (Negative) Urine Nitrite Negative (Negative) POC Urine Nitrite (Negative) Urine Bilirubin Negative (Negative) POC Urine Bilirubin (Negative) Urine Urobilinogen Negative (Negative) POC Urine Urobilinogen (Normal) Ur Leukocyte Esterase Negative (Negative) POC U Leukocyte Esteras (Negative) Urine WBC (Auto) 1-5 (0-5) /hpf Urine RBC (Auto) 0-4 (0-4) /hpf U Hyaline Cast (Auto) 5-10 H (0-5) /lpf U Epithel Cells (Auto) 10-20 H (0-5) /lpf Urine Bacteria (Auto) Negative (Negative) Imaging Data Attestation: I personally reviewed and interpreted this imaging study as follows: Radiologist's Impression: Radiology results as stated below per my review and the radiologist's interpretation: ABDOMEN AND PELVIS CT WITHOUT CONTRAST CT DOSE: 866.98 mGy.cm HISTORY: Acute postoperative vomiting. Reported history was several weeks prior. History of recent jejunal GIST excision with jejunojejunal anastomosis. vomiting post op eval for obstruction TECHNIQUE: Multiaxial CT images of the abdomen and pelvis were performed without contrast. A dose lowering technique was utilized adhering to the principles of ALARA. COMPARISON STUDY: Small bowel follow-through study 11/26/2018, MR enterography 09/04/2018, CT 01/17/2018. FINDINGS: Lung bases are generally clear. There is no pneumatosis or pneumoperitoneum. Imaged inferior cardiac chambers are unremarkable with minimal coronary arterial calcifications and trace pericardial effusion. Gallbladder, liver, spleen and adrenal glands are unremarkable. 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 There is no pancreatic or biliary ductal dilation identified. There is mild nonspecific bilateral perinephric stranding. Kidneys, ureters, prostate and urinary bladder are otherwise unremarkable. Aorta and IVC are within normal limits. No adenopathy. There is retained contrast noted throughout the large and small bowel from yesterday's small bowel follow-through study. Hyperdense material is also noted within the gastric lumen and duodenum. There are several dilated loops of small bowel about the mid and lower abdomen and pelvis measuring up to 4.0 cm which demonstrate mild wall thickening, mild perienteric stranding and trace interloop edema. The large bowel is predominately decompressed. Colonic diverticulosis. Appendix appears noninflamed. Suture material is noted within small bowel of the abdominal left lower quadrant. This appears to be the area of transition from dilated to decompressed small bowel (image 271 series 3) and also nicely seen on the coronal and sagittal images. Surgical scar about the ventral anterior abdomen. Bones appear to be intact. There is an unchanged 2.3 cm sclerotic lesion of the proximal left femur which is likely benign. Spondylitic spurring and facet arthrosis of the spine. IMPRESSION: 1. Postoperative changes from a partial small bowel resection with jejunal jejunal anastomosis. 2. Small bowel distention with transition point at the anastomotic site within the left midabdomen suggestive of partial small bowel obstruction. Associated small bowel wall thickening with perienteric inflammation and mild interloop edema is likely reactive. 3. No pneumatosis or pneumoperitoneum identified. 4. Colonic diverticulosis. Electronically signed by: Macario Salas M.D. 11/27/2018 1:24 PM Dictated: 11/27/18 1303 Transcribed: 11/27/18 1303 Blood Pressure Blood Pressure Findings: Normal blood pressure MDM Narrative I did evaluate the patient as noted above. The patient is postop with significant pain and vomiting with the inability to eat. His symptoms seem consistent with a small bowel obstruction or partial obstruction. IV access was established. The patient was placed on a continuous telemetry monitor. I did treat him with Dilaudid and Zofran IV. He was also given normal saline IV. I did order and review the patient's blood work as noted in the electronic medical record. He has mild anemia. His white count is not elevated. His creatinine is elevated at 1.53. I did order a CT of the abdomen and pelvis. I did review the images myself as well as the radiology report as described above. His CAT scan is consistent with a partial bowel obstruction. I did discuss the test results with the patient. He did not wish to go back to [facility]. He wished to consult the surgeon here. We spoke to Dr. Grajeda of medicine who will hospitalize him and consult the surgeon. Impression & Plan Partial small bowel obstruction, Dehydration Discharge Plan Visit Data *Final* Discharge Date/Time: 11/27/18 15:58 Chief Complaint: Abdominal Pain Stated Complaint: abd pain ED Provider: Jean Pierre Lockhart Discharge Problem: Partial small bowel obstruction, Dehydration Patient Disposition: Admitted As Inpatient Discharge Instructions Interventions: ED Discharge Assessment Last Done: 11/27/18 15:58 The scribe's documentation has been prepared under my direction and personally reviewed by me in its entirety. I confirm that the note above accurately reflects all work, treatment, procedures, and medical decision making performed by me.
[2018-11-27] MEDS ORDERED: SODIUM CHLORIDE 0.9% 1000ML 1,000 ML IV ONE (19:29)
[2018-11-27] MEDS: DRONEDARONE HCL 400 MG TAB PO SCH (20:18)
[2018-11-27] MEDS: ACETAMINOPHEN 65 ML IV PRN (21:50)
[2018-11-28] MEDS: NSS + 20MEQ KCL 20 MEQ/1,000 ML BAG IV SCH ×3 (04:39→17:46)
[2018-11-28 06:24] LABS: Hemoglobin 12.2 g/dL (14.0-18.0); Mean Corpuscular Volume 75.5 fL (80-100); Mean Platelet Volume 9.6 fL (7.4-10.4); Platelet Count 259 K/uL (130-400); RDW Coefficient of Variation 20.6 % (11.5-14.5); White Blood Count 4.09 K/uL (4.8-10.8)
[2018-11-28 06:49] LABS: BUN Creatinine Ratio 8.7 (10-20); Calcium 8.5 mg/dl (8.5-10.1); Creatinine Clr Calc Pharmacy 94.3 ml/min; Est GFR (African American) 78.5; Est GFR (Non-African American) 67.7; Potassium 4.1 mmol/L (3.5-5.1)
--- NOTE | 2018-11-28 08:04 | XRay Report ---
XR abdomen 2V w PA chest CLINICAL HISTORY: Bowel obstruction. Follow-up study. COMPARISON STUDY: CT scan dated 11/27/2018 FINDINGS: The erect chest reveals no free air. Erect and supine views the abdomen reveal dilated smal l bowel loops measuring up to 4.8 cm in diameter. There are scattered small bowel air-fluid levels. T here is contrast within nondilated colon. There is barium within a nondilated appendix. There is colo gricelda diverticulosis. There is a well marginated 24 mm sclerotic lesion within the left proximal femur. IMPRESSION: 1. Radiographic findings consistent with a partial small bowel obstruction 2. No evidence of free intraperitoneal air Electronically signed by: Noé Morrison M.D. 11/28/2018 8:03 AM
[2018-11-28] MEDS: DRONEDARONE HCL 400 MG TAB PO SCH (08:32)
[2018-11-28] MEDS ORDERED: DRONEDARONE HCL 400 MG TAB PO SCH (09:00)
[2018-11-28] MEDS: ACETAMINOPHEN 65 ML IV PRN (09:07)
--- NOTE | 2018-11-28 13:18 | Surgery Progress Note ---
Date of Service November 28, 2018 Assessment & Plan (1) Partial small bowel obstruction: psbo- likely stricture vs swelling at anastomosis vs hematoma at anastomosis. able to tolerate fluids. plan is to keep him on liquids only and try to get him to 5 weeks post op. if no improvement clinically may need revision of the anastomosis pt agreeable to plan will try liquids here. if tolerates he can go home. will f/u with me as out-pt Subjective feeling better today. no n/v. no pain. less distension. Physical Exam Vital Signs (Past 24 Hours): Last Vital Signs Temp 36.8 C 11/28/18 07:12 Pulse 59 L 11/28/18 07:12 Resp 18 11/28/18 07:12 BP 116/70 11/28/18 07:12 Pulse Ox 97 11/28/18 07:12 Physical Exam: alert. nad. abd: soft. minimal distension. nontender.
[2018-11-28] MEDS ORDERED: HEPARIN SOD 5,000 UNIT/0.5 ML VIAL SQ SCH (15:00)
--- NOTE | 2018-11-28 15:43 | Hospitalist Progress Note ---
Date of Service November 28, 2018 Assessment & Plan (1) Partial small bowel obstruction: Likely due to stricture at previous surgery anastomotic site. Management per surgery -- defer diet initiation, etc to gen surg. Cont IVF. 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 (3) SVT (supraventricular tachycardia): history of SVT with ablation. then had one episode of atrial fibrillation in the fall 2017. He has been on Multaq and Xarelto since that time. xarelto now on hold in the event he needs surgical intervention for pSBO. Subjective pt passing flatus, no stool yet no vomiting since pre-admission overall feels better ambulating no other complaints Constitutional: no fever Respiratory: no cough and no dyspnea Cardiovascular: no chest pain Gastrointestinal: no abdominal pain and no vomiting Physical Exam Vital Signs (Past 24 Hours): Last Vital Signs Temp 37.0 C 11/28/18 15:14 Pulse 64 11/28/18 15:14 Resp 18 11/28/18 15:14 BP 134/63 11/28/18 15:14 Pulse Ox 96 11/28/18 15:14 Constitutional: well developed and well nourished; no acute distress and not ill appearing ENMT: external ear and nose normal, oropharynx normal Respiratory: normal respiratory effort, lungs clear to auscultation Cardiovascular: Rate/Rhythm: regular rate and regular rhythm Heart Sounds: normal S1 and normal S2; no murmur Vessels: posterior tibial pulses present and dorsalis pedis pulses present; no JVD Gastrointestinal (Abdomen): Inspection/Auscultation: + abdomen distended (mild) and normal bowel sounds Percussion/Palpation: abdomen nontender, no guarding, abdomen not rigid and no hepatosplenomegaly Psychiatric: A+Ox3, euthymic affect
--- NOTE | 2018-12-08 23:59 | Discharge Summary ---
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 The patient's tumor was 3.8 cm in size. He had a estevan postoperative course marked by ileus requiring an NG tube. He was released from the hospital 6 days after his initial surgery. He reports intermittent nausea since that time. Today he vomited undigested foodstuffs from [address] scan performed in the ER confirmed a partial small bowel obstruction. The patient did require parenteral pain control and antiemetics. Patient has lost 18 pounds since October. Principal Diagnosis partial small bowel obstruction Discharge Exam Constitutional well developed and well nourished; no acute distress and not ill appearing ENMT external ear and nose normal, oropharynx normal Respiratory normal respiratory effort, lungs clear to auscultation Cardiovascular Rate/Rhythm: regular rate and regular rhythm Heart Sounds: normal S1 and normal S2; no murmur Vessels: posterior tibial pulses present and dorsalis pedis pulses present; no JVD Gastrointestinal (Abdomen) Inspection/Auscultation: + abdomen distended (mild) and normal bowel sounds Percussion/Palpation: abdomen nontender, no guarding, abdomen not rigid and no hepatosplenomegaly Psychiatric A+Ox3, euthymic affect Discharge Data Allergies Allergy/AdvReac Type Severity Reaction Status Date / Time Penicillins Allergy Intermediate RASH Verified 11/27/18 12:58 Consultations general surgery - Mckinley Garcia DO Ordered Studies CT abd/pelvis - IMPRESSION: 1. Postoperative changes from a partial small bowel resection with jejunal jejunal anastomosis. 2. Small bowel distention with transition point at the anastomotic site within the left midabdomen suggestive of partial small bowel obstruction. Associated small bowel wall thickening with perienteric inflammation and mild interloop edema is likely reactive. 3. No pneumatosis or pneumoperitoneum identified. 4. Colonic diverticulosis. Hospital Course (1) Partial small bowel obstruction: Treated conservatively with bowel rest and IV fluids. He did not require NG tube placement. He was seen by Dr. Garcia from general surgery who felt his pSBO was due to swelling or stricture at the anastomotic site of his previous small bowel resection for the GI stromal tumor. He began to pass flatus and was started on clear liquids. He tolerated these without nausea or vomiting. The patient was discharged to home on a clear liquid diet and he will need to continue this due to the high risk of recurrent pSBO and GI intolerance to solid foods. He was seen by the lieutenant general to discuss protein supplementation, etc as it would be challenging to maintain adequate calories and nutrition on this restricted diet. Dr. Garcia is hopeful that the patient, if he ultimately needs a revision of his original small bowel anastomosis, can get to 5 or 6 weeks post-op from his original surgery. He will follow-up with Dr. Garcia post-discharge. 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 On plain x-rays this admission there was incidental note of a sclerotic bone lesion in the left femur. It is uncommon for GI stromal tumors to metastatize to bone. [id number] he should have follow-up for this. (3) MRSA (methicillin resistant staph aureus) culture positive: Tested positive for MRSA in his nares at [facility]. He will perform "eradication" protocol with bactroban to his nares and hibiclens showers for 10 days after this admission. (4) SVT (supraventricular tachycardia): He will continue multaq but HOLD his anticoagulation. (5) Dyslipidemia: Continue statin agent. Total Time Total Time Spent Total Time Spent (In Minutes): 40 Total Time Includes: Examination of the Patient, Discharge Planning, Medication Reconciliation and Communication With Other Providers Discharge Plan Discharge Items Patient Disposition: Home - Self-Care Reason For Visit: PARTIAL SMALL BOWEL OBSTRUCTION Discharge Diagnosis: partial small bowel obstruction -- suspected to be from stricture from recent surgery Discharge Goals: Diagnostic testing and Therapeutic intervention Activity: As commented below Activity Comment: please follow any previous instructions provided by [facility] Exercise/Sports: Wait until after follow-up appointment Non-emergency contact: Primary Care Provider and Surgeon Call non-emergency contact if: you have any medication questions, your symptoms worsen and your temperature is above 100.5 Follow-up/Referrals: Tano Pete MD [Primary Care Provider] - Mckinley Garcia, [Surgeon] - (see Dr. Garcia - general surgery - within 1 week (sooner if needed)) Diet: Clear liquid Addtl Provider Instructions: 1. Please contact Dr. Garcia's office to schedule appointment within 1 week. 2. Continue clear liquid diet as tolerated. 3. Recommend Boost breeze (or Ensure equivalent product) three times a day to maintain your protein intake. 4. Recommend multivitamin daily. 5. To help eradicate the MRSA from your nose/skin -- * hibiclens showers twice a day for 7-10 days * mupiricin ointment twice a day to both nostrils for 7-10 days 6. Please hold your xarelto for now given the high concern you may need surgery in the next couple of weeks. 7. Return to [facility] if -- * you have recurrent vomiting * you have severe abdominal bloating, distension, and/or pain * you have any GI symptoms that concern you Prescriptions: New mupirocin 2 % ointment 1 appln TOP BID Qty: 30 RF: 1 Continued atorvastatin 10 mg Tablet 10 mg PO HS RF: 0 Changed Multaq 400 mg tablet 400 mg PO BID Qty: 60 RF: 0 Discontinued Xarelto 20 mg Tablet 20 mg PO DAILY RF: 0 Stand-Alone Forms: My [facility] Discharge Orders: Discharge Order (Routine); Ordered 11/28/18 Ordered By: Reg Villegas Admission Data Admit Date/Time: 11/27/18 14:19 Attending Provider: Reg Villegas Admit Provider: Jean Pierre Grajeda Primary Care Provider: Tano Pete Other Providers: Mckinley Garcia Service: Surgical Services Other Interventions: Discharge Summary Assessment (RN) Last Done: 11/28/18 19:10 DC Date/Time DO NOT enter until pt leaves facility: 11/28/18 19:31
== END 2018-11-28 19:31 | disposition home or self-care (01) | DRG 389 ==
LOC: ED 12:01 → 3E 12:01 → SUATTDRO 14:19 → OBSVTOIN 14:19 → 3E 15:58
DX: K91.31 Postprocedural partial intestinal obstruction; Z83.2 Family history of diseases of the blood and blood-forming organs and certain disorders involving the immune mechanism; Z79.899 Other long term (current) drug therapy; Z86.72 Personal history of thrombophlebitis; Z88.0 Allergy status to penicillin; Z98.0 Intestinal bypass and anastomosis status; E78.5 Hyperlipidemia, unspecified; Z79.02 Long term (current) use of antithrombotics/antiplatelets; Z86.79 Personal history of other diseases of the circulatory system; C49.A3 Gastrointestinal stromal tumor of small intestine

== ENCOUNTER 2018-12-11 05:40 | Inpatient (IN) ==
--- NOTE | 2018-12-09 13:26 | Anesthesiology Consultation ---
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 Patient underwent an EP study in September 2018 and had a pulmonary vein isolation for his inducible PAF. However, they could not induce any of his AVNRT (therefore ablation was abandoned, slow pathway was not ablated either). Fortunately his AVNRT is self limiting. He is currently maintained on Multaq 400 mg bid and Eliquis 5 mg bid. Based on his functional status / excellent exercise tolerance without limiting cardiopulmonary symptoms, normal LV systolic function, and a recent negative Stress Echocardiogram -- He is an acceptable surgical risk to undergo abdominal surgery as scheduled in the near future. We recommend that he take his usual dose of Multaq the morning of surgery with sips of water. Patient may hold Eliquis x 48 to 72 hours leading up to surgery. There is no need for further cardiac workup at this time. Chart Review Chart Review: Acceptable Risk for Surgery and Patient NOT seen in Pre Admission Testing History Surgery Operation Date: 12/11/18 07:15 Proposed Procedures p Laparoscopic Revision of Small Bowel Anastomosis, - Mckinley Garcia DO s Open Repair of Ventral hernia - Mckinley Garcia, Height/Weight Height: 6 ft 1 in Weight: 112.1 kg Allergies Allergy/AdvReac Type Severity Reaction Status Date / Time Penicillins Allergy Intermediate RASH Verified 11/27/18 12:58 Medications Home Medications Medication Instructions Recorded Confirmed Last Taken atorvastatin 10 mg PO HS 07/08/18 11/27/18 11/27/18 Multaq 400 mg PO BID #60 tab 11/28/18 11/27/18 11/27/18 mupirocin 1 appln TOP BID #30 gm 11/28/18 Unknown ranitidine HCl 150 mg PO BID 12/09/18 12/09/18 Unknown rivaroxaban [Xarelto] 20 mg PO DAILY 12/09/18 12/09/18 Unknown Past Medical History Medical History 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 Per note by cardiology (Maykel Garrett PA-C), Evaluated by [facility] EP 09/2018 and "had pulmonary vein isolation for his inducible PAF. However, they could not induce any of his AVNRT (therefore ablation was abandoned, slow pathway was not ablated either). Fortunately his AVNRT is self limiting. He is currently maintained on Multaq 400 mg bid and Eliquis 5 mg bid." Anemia IRON DEFICIENCY Atrial fibrillation Paroxysmal, dx 07/04/18. Longstanding h/o tachypalpitations, but symptoms combined with irregular pulse prompted EKG done at PCP office--confirmed Afib. Was seen acutely at cardiology and started on Xarelto and Toprol. S/P CARDIOVERSION 07/09/18. History of cardioversion 07/09/18, successful. History of gastrointestinal stromal tumor (GIST) Resected 10/2018 [facility], had post-op ileus. Seen in [facility] ED 11/27 with abdominal pain. Per surgery consult likely stricture vs swelling at anastamosis vs hematoma at anastamosis. Pt to remain on liquids only until surgery. Hyperlipidemia Superficial thrombophlebitis of both legs H/O GSV clots, one provoked, one unexplained, no hypercoagulable workup done. Past Surgical History Surgical History H/O colonoscopy with polypectomy History of arthroscopy RIGHT SHOULDER History of colonoscopy History of nasal septoplasty Social History Smoking Status: Never smoker Hx Alcohol Use: Yes Alcohol type: beer alcohol intake frequency: holidays/special occasions only Hx Substance Use: No substance use type: does not use Testing Electrocardiogram Date: 07/09/18 Findings: + NSR @ (81) Left posterior fascicular block. Done immediately following cardioversion. Stress Test Date: 08/01/18 Type: exercise Normal exercise echocardiogram without evidence of inducible ischemia. Exercise related SVT. Exercise stopped due to leg fatigue and very rapid SVT. The left ventricle is normal in size and systolic function. There is mild concentric LVH. Laboratory Results Laboratory Tests 11/28/18 11/28/18 06:01 06:01 WBC 4.09 L Hgb 12.2 L Hct 37.0 L Plt Count 259 Sodium 139 Potassium 4.1 Chloride 110 H Carbon Dioxide 25 BUN 11 Creatinine 1.22 D Glucose 108 H
[2018-12-11] MEDS ORDERED: CLINDAMYCIN 900 MG / 50ML D5W IV SCH (06:00)
[2018-12-11] MEDS ORDERED: LR 15ML/HR IV SCH (06:00)
--- NOTE | 2018-12-11 06:43 | History & Physical Report ---
Date of Service December 11, 2018 Assessment & Plan (1) Partial small bowel obstruction: patient has failed conservative treatment. only tolerating liquids for several weeks discussed options/risks including bleeding/infection/anastomotic leak/injury to other organs/dvt/pe/mi/cva etc.... questions answered will proceed with dx laparoscopy with revision of small bowel anastomosis, possible partial small bowel resection, possible repair of ventral hernia, surgery as needed. (2) Gastrointestinal stromal tumor (GIST): History of Present Illness Chief Complaint: n/v s/p partial SBR for newly dx GIST tumor of small bowel. Primary Care Provider: Tano Pete MD Allergies Allergy/AdvReac Type Severity Reaction Status Date / Time Penicillins Allergy Intermediate RASH Verified 12/11/18 06:04 Home Medications Home Medications Medication Instructions Recorded Confirmed Type atorvastatin 10 mg PO HS 07/08/18 12/11/18 History Multaq 400 mg PO BID #60 tab 11/28/18 12/11/18 Rx rivaroxaban [Xarelto] 20 mg PO . 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 Per note by cardiology (Maykel Garrett PA-C), Evaluated by [facility] EP 09/2018 and "had pulmonary vein isolation for his inducible PAF. However, they could not induce any of his AVNRT (therefore ablation was abandoned, slow pathway was not ablated either). Fortunately his AVNRT is self limiting. He is currently maintained on Multaq 400 mg bid and Eliquis 5 mg bid." Anemia IRON DEFICIENCY Atrial fibrillation Paroxysmal, dx 07/04/18. Longstanding h/o tachypalpitations, but symptoms combined with irregular pulse prompted EKG done at PCP office--confirmed Afib. Was seen acutely at cardiology and started on Xarelto and Toprol. S/P CARDIOVERSION 07/09/18. History of cardioversion 07/09/18, successful. History of gastrointestinal stromal tumor (GIST) Resected 10/2018 [facility], had post-op ileus. Seen in [facility] ED 11/27 with abdominal pain. Per surgery consult likely stricture vs swelling at anastamosis vs hematoma at anastamosis. Pt to remain on liquids only until surgery. Hyperlipidemia Superficial thrombophlebitis of both legs H/O GSV clots, one provoked, one unexplained, no hypercoagulable workup done. Surgical History H/O colonoscopy with polypectomy History of arthroscopy RIGHT SHOULDER History of colonoscopy History of nasal septoplasty Social History Preferred Language: Macanese Communication Ability: Effective Poultry Vaccinator Required: No Beliefs That Will Affect Care: None Current Living Situation: Spouse Other Information That Helps Us Care for You: No Feels Safe at Home: Yes Safety Concerns: Feels Safe At This Time Smoking Status: Never smoker Do You Dip or Chew Tobacco: No Second Hand Exposure: No Tobacco Cessation Education Requested by Patient: No Hx Alcohol Use: Yes Alcohol type: beer Hx Substance Use: No Review of Systems nausea food intolerance Physical Exam Vital Signs (Past 24 Hours): Last Vital Signs Temp 36.6 C 12/11/18 06:13 Pulse 80 12/11/18 06:13 Resp 18 12/11/18 06:13 BP 122/74 12/11/18 06:13 Pulse Ox 98 12/11/18 06:13 Physical Exam: alert. oriented. nad Heent: WNL's. Heart: RRR Lungs: CTA b/l abd: soft. incisions well healed. +diastasis /?small epigastric hernia ext: no c/c/e
[2018-12-11] MEDS ORDERED: DEXAMETHASONE SOD INJ 4 MG/ML VIAL ONE (06:46)
[2018-12-11] MEDS ORDERED: MIDAZOLAM HCL 1 MG/ML 2ML VIAL ONE (06:46)
[2018-12-11] MEDS ORDERED: PROPOFOL IV EMULSION 10 MG/ML 20 ML VIAL IV ONE (06:46)
[2018-12-11] MEDS ORDERED: LIDOCAINE HCL 2% 2 ML VIAL/AMP(20MG/ML) INFIL ONE (06:46)
[2018-12-11] MEDS ORDERED: ROCURONIUM BROMIDE 10 MG/ML 5 ML VIAL ONE ×3 (06:46→08:36)
[2018-12-11] MEDS ORDERED: GLYCOPYRROLATE 0.2 MG/ML VIAL ONE (06:46)
[2018-12-11] MEDS ORDERED: ONDANSETRON INJ 2 MG/ML 2 ML VIAL ONE ×2 (06:46→08:42)
[2018-12-11] MEDS ORDERED: NEOSTIGMINE METHYLSULFATE 5 MG/5 ML SYR ONE (06:46)
[2018-12-11] MEDS ORDERED: fentaNYL citrate 100 MCG/2 ML VIAL ONE ×2 (06:47→07:41)
[2018-12-11] MEDS ORDERED: BUPIVACAINE/EPINEPHRINE 0.5% MPF 1:200,000 30 ML VIAL ONE (07:01)
[2018-12-11] MEDS ORDERED: ONDANSETRON INJ 2 MG/ML 2 ML VIAL IV PRN ×2 (07:34→10:23)
[2018-12-11] MEDS ORDERED: ATROPINE SULFATE 0.1 MG/ML 10ML SYR IV PRN (07:34)
[2018-12-11] MEDS ORDERED: KETOROLAC 30 MG/ML VIAL IV PRN (07:34)
[2018-12-11] MEDS ORDERED: DEXAMETHASONE SOD INJ 4 MG/ML VIAL IV PRN (07:34)
[2018-12-11] MEDS ORDERED: ePHEDrine sulfate 50 MG/ML AMP IV PRN (07:34)
[2018-12-11] MEDS ORDERED: ACETAMINOPHEN 1000 MG/100 ML IV IV ONE (07:38)
[2018-12-11] MEDS ORDERED: HYDROmorphone INJ 2 MG/ML SYR/VIAL ONE (08:18)
[2018-12-11] MEDS ORDERED: KETOROLAC 30 MG/ML VIAL ONE (08:36)
--- NOTE | 2018-12-11 08:59 | Post Operative Brief Note ---
Immediate Post Op Note v1 Date of Surgery December 11, 2018 Pre & Post Diagnosis Operation Date: 12/11/18 07:15 Pre-Op Diagnosis: Anastomatic Stricture; Ventral Hernia Post-Op Diagnosis: Anastomatic Stricture; Ventral Hernia Procedure Operation Date: 12/11/18 07:15 Actual Procedures p Diagnostic Laparoscopy, Converted to Open Revision of Small Bowel Anastomosis/ Small Bowl Resection (Not Applicable) - Mckinley Garcia DO s Open Repair of Ventral hernia(Not Applicable) - Mckinley Garcia DO Surgeon Mckinley Garcia DO Washer And Capper Machine Operator lucas paige Estimated Blood Loss 5 Findings Consistent with Post-Op Diagnosis
[2018-12-11] MEDS ORDERED: PROMETHAZINE HCL 12.5 MG in SODIUM CHLORIDE 0.9% 50 ML IV PRN ×2 (09:17→10:23)
[2018-12-11] MEDS: fentaNYL citrate 100 MCG/2 ML VIAL IV PRN ×3 (09:31→09:42)
--- NOTE | 2018-12-11 09:36 | Operative Report ---
Post Operative Report Pre & Post Diagnosis Operation Date: 12/11/18 07:15 Pre-Op Diagnosis: Anastomatic Stricture; Ventral Hernia Post-Op Diagnosis: Anastomatic Stricture; Ventral Hernia Procedure Operation Date: 12/11/18 07:15 Actual Procedures p Diagnostic Laparoscopy, Converted to Open Revision of Small Bowel Anastomosis/ Small Bowl Resection (Not Applicable) - Mckinley Garcia DO s Open Repair of Ventral hernia(Not Applicable) - Mckinley Garcia DO Surgeon Mckinley Garcia DO Dormitory Maid lucas paige Estimated Blood Loss 5 Findings Consistent with Post-Op Diagnosis Specimens portion of small bowel/prior anastomosis Description of Procedure After informed consent was obtained the patient was taken to the operating room and placed in supine position. After successful intubation the abdomen was shaved and sterilely prepped and draped in usual fashion. I used an 11 blade scalpel to open his infraumbilical incision from his recent previous surgery. This was carried down through the soft tissue using cautery. Anterior rectus fascia was opened using cautery and two #0 Vicryl stay sutures were placed. Peritoneum was elevated with hemostats and incised under direct vision using a Metzenbaum scissor. A finger sweep was performed to take down adhesions and a 12 mm Gagnon trocar was placed. The abdomen was insufflated to 20 mmHg. Laparoscope was inserted and the abdomen examined in 360 degrees. His 2 left sided 5 mm trocar sites from his prior surgery were both opened as well and 5 mm trochars were placed. We began by looking around the abdomen in 360 degrees. Liver and peritoneal surfaces all look normal with no evidence of metastatic disease. Omentum looked normal as well. All peritoneal surfaces in the lower abdomen were normal as. We began at the cecum and started terminal ileum and ran his small bowel backwards. Eventually we came upon his recent anastomosis the proximal limb of which was massively dilated. The distal limb was completely decompressed. There was no evidence of local recurrence. It was rather easy to mobilize the anastomosis and therefore I decided to deliver it out of the anastomosis and redo it by hand. We discussed with the patient who felt he had had a supraumbilical hernia. We examined this with the camera and he did in fact have a supraumbilical epigastric hernia. Because of the size of the dilated bowel and wanting to repair the hernia we decided to extend the infraumbilical incision around the umbilicus up to the hernia itself. We used cautery to open the soft tissue as well as the fascia up to and including the hernia. Once we did this we were then able to easily deliver the small bowel anastomosis out of the wound. White towels were used to protect the wound during the resection. We used a CECILY brown cartridge 60 mm staplers to transect the small bowel proximal to the anastomosis as well as distal to the anastomosis. We then used the LigaSure device to take down the mesentery which was thickened from the obstruction. We passed this off to be sent to pathology. We then made a small enterotomy in both limbs and used a CECILY 60 mm brown cartr idge stapler to create a [id number] anastomosis. We performed a second firing to create an even larger anastomosis. We then used a TA 60 stapling device to close the common enterotomy. 3-[address] a crotch stitch. 3-0 silk was also used in Lembert fashion to oversew the staple lines. The mesenteric defect was closed in running fashion using 2-0 Vicryl. The anastomosis was widely patent and viable with good blood flow. It was not twisted. We then dunked this back into the abdominal cavity. We then changed our gloves. We closed the fascia and incorporated the hernia with our closure using #1 looped PDS. We then thoroughly irrigated the wound. It was closed in multiple layers using 2-0 Vicryl for deep layers and 4-0 Monocryl for skin. The trocar sites were closed with 4-0 Monocryl as well. Benzoin and Steri-Strips gauze and tape were used as a dressing. The patient was awaken extubated and transferred to recovery in stable condition. My physician ex assistant/program director was present through the entire case. Health prep the patient. He helped with exposure and assisted with redoing the anastomosis as well as wound closure and dressing placement. I attest to the content of the Intraoperative Record and any orders documented therein. Any exceptions are noted below.
[2018-12-11] MEDS: HYDROmorphone INJ 2 MG/ML SYR/VIAL IV PRN ×2 (09:49→09:54)
[2018-12-11] MEDS ORDERED: HYDROmorphone INJ 1 MG/ML SYRINGE IV PRN ×2 (10:23)
[2018-12-11] MEDS: LACTATED RINGER'S 1,000 ML IV SCH ×2 (11:08→19:49)
--- NOTE | 2018-12-11 11:20 | Anesthesiology Progress Note ---
Date of Service December 11, 2018 Anesthesia Post Procedure Vital Signs Vital Signs: Temp Pulse Pulse Resp BP Pulse Ox 12/11/18 11:09 75 18 115/77 97 12/11/18 10:52 36.5 C 78 18 113/70 99 12/11/18 10:15 76 10 L 114/68 100 12/11/18 10:10 36.2 C L 77 10 L 118/75 99 12/11/18 10:00 80 16 117/72 100 12/11/18 09:50 78 16 120/68 100 12/11/18 09:40 77 14 120/65 100 12/11/18 09:30 79 14 120/73 100 12/11/18 09:20 84 10 L 117/70 100 12/11/18 09:08 36.4 C L 84 12 115/66 100 12/11/18 06:13 36.6 C 80 18 122/74 98 Pain Intensity Abdomen: Pain Intensity: 2 Notes Mental Status: alert / awake / arousable and participated in evaluation Patient Amnestic to Procedure: Yes Nausea / Vomiting: adequately controlled Pain: adequately controlled Airway Patency, RR, SpO2: stable & adequate BP & HR: stable & adequate Hydration State: stable & adequate Anesthetic Complications: no major complications apparent
[2018-12-11] MEDS: KETOROLAC 30 MG/ML VIAL IV PRN (12:33)
[2018-12-11] MEDS: CLINDAMYCIN 600 MG in DEXTROSE 5% 50 ML IV SCH ×2 (14:43→22:08)
[2018-12-11] MEDS: ACETAMINOPHEN 1,000 MG/100 ML VIAL IV SCH ×2 (15:55→23:34)
[2018-12-11] MEDS: DRONEDARONE HCL 400 MG TAB PO SCH (20:25)
[2018-12-12] MEDS: LACTATED RINGER'S 1,000 ML IV SCH ×2 (03:23→10:00)
[2018-12-12 06:31] LABS: Hematocrit (blood only) 33.7 % (42-52); Hemoglobin 11.5 g/dL (14.0-18.0); Immature Granulocytes # (auto) 0.01 K/uL (0.00-0.02); Immature Granulocytes % (auto) 0.1 %; Lymphocytes # (auto) 0.87 K/uL (1.2-3.4); Lymphocytes % (auto) 12.2 %; Mean Corpuscular Hgb Conc 34.1 g/dL (32-36); Mean Corpuscular Volume 75.4 fL (80-100); Mean Platelet Volume 9.2 fL (7.4-10.4); Monocytes # (auto) 0.76 K/uL (0.11-0.59); Monocytes % (auto) 10.6 %; Neutrophils # (auto) 5.51 K/uL (1.4-6.5); Neutrophils % (auto) 77.1 %; Platelet Count 193 K/uL (130-400); RDW Coefficient of Variation 20.3 % (11.5-14.5); RDW Standard Deviation 55.5 fL (36.4-46.3); Red Blood Count 4.47 M/uL (4.7-6.1); White Blood Count 7.15 K/uL (4.8-10.8)
[2018-12-12 06:42] LABS: INR 1.1 (0.9-1.1); Partial Thromboplastin Ratio 0.9; Partial Thromboplastin Time 24.3 Seconds (21.0-31.0); Prothrombin Time 10.9 Seconds (9.0-12.0)
[2018-12-12] MEDS: CLINDAMYCIN 600 MG in DEXTROSE 5% 50 ML IV SCH (06:49)
[2018-12-12 07:07] LABS: BUN Creatinine Ratio 8.9 (10-20); Calcium 8.6 mg/dl (8.5-10.1); Creatinine Clr Calc Pharmacy 97.8 ml/min; Est GFR (African American) 83.5
[2018-12-12 07:19] LABS: Anisocytosis Present; Echinocytes 1+; Ovalocytes 1+; Poikilocytosis Present
[2018-12-12] MEDS: ACETAMINOPHEN 1,000 MG/100 ML VIAL IV SCH ×2 (07:53→15:35)
[2018-12-12] MEDS: DRONEDARONE HCL 400 MG TAB PO SCH ×2 (07:54→20:54)
[2018-12-12] MEDS: ENOXAPARIN INJ 40 MG/0.4 ML SYR SQ SCH (07:54)
--- NOTE | 2018-12-12 08:27 | Anesthesiology Progress Note ---
Date of Service December 12, 2018 Anesthesia Post Procedure Vital Signs Vital Signs: Temp Pulse Pulse Pulse Resp BP BP 12/12/18 07:33 36.9 C 65 16 100/61 12/12/18 03:16 36.8 C 64 14 106/61 12/11/18 23:36 36.8 C 77 14 102/57 L 12/11/18 19:52 36.7 C 82 17 120/75 12/11/18 15:43 36.5 C 75 16 117/70 12/11/18 13:30 36.5 C 80 16 110/70 12/11/18 12:54 79 18 127/76 12/11/18 11:41 73 16 113/69 12/11/18 11:09 75 18 115/77 12/11/18 10:52 36.5 C 78 18 113/70 12/11/18 10:15 76 10 L 114/68 12/11/18 10:10 36.2 C L 77 10 L 118/75 12/11/18 10:00 80 16 117/72 12/11/18 09:50 78 16 120/68 12/11/18 09:40 77 14 120/65 12/11/18 09:30 79 14 120/73 12/11/18 09:20 84 10 L 117/70 12/11/18 09:08 36.4 C L 84 12 115/66 Pulse Ox 12/12/18 07:33 95 12/12/18 03:16 93 12/11/18 23:36 93 12/11/18 19:52 94 12/11/18 15:43 93 12/11/18 13:30 94 12/11/18 12:54 90 12/11/18 11:41 97 12/11/18 11:09 97 12/11/18 10:52 99 12/11/18 10:15 100 12/11/18 10:10 99 12/11/18 10:00 100 12/11/18 09:50 100 12/11/18 09:40 100 12/11/18 09:30 100 12/11/18 09:20 100 12/11/18 09:08 100 Pain Intensity Abdomen: Pain Intensity: 2 Notes Mental Status: alert / awake / arousable and participated in evaluation Patient Amnestic to Procedure: Yes Nausea / Vomiting: adequately controlled Pain: adequately controlled Airway Patency, RR, SpO2: stable & adequate BP & HR: stable & adequate Hydration State: stable & adequate Anesthetic Complications: no major complications apparent and Pt Satisfied with anesthetic care
[2018-12-12] MEDS ORDERED: OXYCODONE HCL IR 5 MG TAB (IMMEDIATE RELEASE) PO PRN (08:28)
--- NOTE | 2018-12-12 08:28 | Surgery Progress Note ---
Date of Service December 12, 2018 Assessment & Plan (1) Partial small bowel obstruction: POD 1 doing as expected increase ambulation will change lovenox back to xarelto tomorrow awaiting bowel fx can have full liquids today Subjective doing well. some distension. no n/v. pain manageble. sherley clears so far Physical Exam Physical Exam: alert. nad abd: soft. distended with some typany Results & Data Vital Signs (Past 12 Hours) Vital Signs Temp Pulse Pulse Resp BP Pulse Ox 12/12/18 07:33 36.9 C 65 16 100/61 95 12/12/18 03:16 36.8 C 64 14 106/61 93 12/11/18 23:36 36.8 C 77 14 102/57 L 93
[2018-12-12] MEDS: KETOROLAC 30 MG/ML VIAL IV PRN (13:54)
[2018-12-13] MEDS: ACETAMINOPHEN 1,000 MG/100 ML VIAL IV SCH ×2 (00:09→07:58)
[2018-12-13] MEDS: ENOXAPARIN INJ 40 MG/0.4 ML SYR SQ SCH (08:01)
[2018-12-13] MEDS: DRONEDARONE HCL 400 MG TAB PO SCH (08:02)
--- NOTE | 2018-12-13 08:59 | Surgery Progress Note ---
Date of Service December 13, 2018 Assessment & Plan (1) Partial small bowel obstruction: pod 2 doing well no acute issues ok for d/c. instructions given. f/u in 1 week Subjective doing well. pain controlled. sherley full liquids. +flatus. less distended Physical Exam Physical Exam: alert. nad abd: soft. wounds look good. Results & Data Vital Signs (Past 12 Hours) Vital Signs Temp Pulse Pulse Resp BP Pulse Ox 12/13/18 07:43 36.6 C 62 16 122/75 96 12/12/18 23:15 37 C 72 18 118/77 92
--- NOTE | 2018-12-15 18:02 | Discharge Summary ---
DATE OF ADMISSION: 12/13/2018 PRIMARY DISCHARGE DIAGNOSES: 1. Anastomotic stricture. 2. Ventral hernia. 3. History of GIST. SECONDARY DISCHARGE DIAGNOSES: 1. Supraventricular tachycardia. 2. Dyslipidemia. PROCEDURE PERFORMED: Diagnostic laparoscopy converted to open revision of small bowel anastomosis and repair of ventral hernia. HOSPITAL COURSE: The patient is a 53-year-old male who recently underwent surgery for gastrointestinal stromal tumor, now with small-bowel obstruction from anastomotic stricture. He was taken to the operating room for revision of the small bowel anastomosis along with ventral hernia repair of small supraumbilical hernia. The procedure was well tolerated. He was transferred to the surgical floor. His Xarelto has been held perioperatively. On postoperative day 1 he was able to tolerate full liquids. By day 2 he was having increasing flatus and less distention. His abdomen was soft, incision was benign. He was stable for discharge. DISCHARGE INSTRUCTIONS: Discharge home. Advance to a low fiber diet as tolerated. Follow up with Dr. Garcia in approximately 1 week. DISCHARGE MEDICATIONS: Atorvastatin 10 mg at bedtime, Multaq 400 mg b.i.d., Xarelto 20 mg daily, can be resumed at discharge.
--- OUTSIDE RECORDS SUMMARY | 2018-12-15 20:54 | External Medical Summary | Continuity of Care Document ---
:1965 Author Name Jeison Mathis, Provider Address Unavailable Unavailable , Care Team Providers Name Role Phone Unavailable Unavailable Unavailable Maykel Garrett PA-C Unavailable [email or web address] Sade Pete M.D. Unavailable [email or web address] PRO Mathis W Unavailable Unavailable Unavailable Unavailable Unavailable Problems Pancreatic cyst (577.2) (K86.2) Leg swelling (729.81) (M79.89) Iron deficiency anemia (280.9) (D50.9) Anemia (285.9) (D64.9) AF (paroxysmal atrial fibrillation) (427.31) (I48.0) Diverticulosis (562.10) (K57.90) Internal hemorrhoids (455.0) (K64.8) Tubular adenoma of colon (211.3) (D12.6) Leg pain (729.5) (M79.606) Leukopenia (288.50) (D72.819) Sinusitis (473.9) (J32.9) Vasomotor rhinitis (477.9) (J30.0) S/P small bowel resection (V45.89) (Z90.49) PSVT (paroxysmal supraventricular tachycardia) (427.0) (I47. 1) Tachycardia (785.0) (R00.0) Dyslipidemia (272.4) (E78.5) Palpitations (785.1) (R00.2) Special screening, prostate cancer (V76.44) (Z12.5) Allergies and Adverse Reactions Amoxicillin TABS (Allergy) Reaction: Ankur h Medications Atorvastatin Calcium 10 MG Oral Tablet; TAKE 1 TABLET BY MOUTH AT BEDTIME Delfina Pete Start: 15-Jun-2015 Quantity: 30 Refills: 11 Mupirocin 2 % External Ointment; apply to both nostrils bid x 10 days , MDilip 15 GM Tube Refills: 0 Multaq 400 MG Oral Tablet; TAKE 1 TABLET BY MOUTH TWIC E DAILY BRIJESH Garrett Start: 27-Oct-2018 Quantity: 60 Refills: 1 Procedures History of Arthroscopy Shoulder Right St atus: Completed History of Surgery Vas Deferens Vasectomy Status: Completed History of Hand Surgery Status: Complete d History of Sinus Surgery Status: Complet ed Immunizations Influenza On: 30-May-2010 13:25 Lot #: [id number], [employer] Tdap On: 24-Jun-2012 GLAXO JULIAN DENTON Influenza On: 10-May-2016 Hepatitis A, adult On: May-2016 Fluzone Quadrivalent Intramuscular Suspension On: 8 Family History Father Family history of Polyps Of The Sigmoid Colon Status: Active Family history of Atrial Fibrillation Status: Active Family history of Coronary Artery Stenosis Status: Active Family history of Benign Prostatic Hypertrophy Status: Activ e Mother Family history of Asthma (V17.5) Status: Active Brother Family history of Family Health Status Of Brother - Good Sta tus: Active Sister Family history of Wali's Syndrome With Arthropathy Status: Active Social History - Smoking Status Never smoker Plan of Treatment Planned Observations Planned Goals not documented Results RADFL Small Bowel Study (Pending) Laboratory: [facility] Diagnost ic Imaging [address] [employer] 26-Nov-2018 11:37 SMALL BOWEL STUDY [place], [place] [phone] Fluorosc opy Report Patient: JAVI ALONSO Admit Date: 06/06 MR#: [id number] Address1: [address] Acct ID:[id number] Address2: Date: 1965 [facility] Zip: [place] [address] Age: 53 Location: [facility] Sex: M Room/Bed: Att Phy: Luigi Borden M.D . Diagnosis: ABD OMINAL PAIN Irina Phy: Tano Pete MD Service Date: 0 11/26/18 Fam Phy: Interpreting Phy: Ivette Lizama her Admit P hy: Ordering Phy: Luigi Borden M.D. cc: FL small maddy wel x-ray CLINICAL HISTORY: 53 years-ol d Male with ABDOMINAL PAIN. Acute general ized abdominal pain. Historyof recent jejunal GIST resection TECHNIQUE: Oral barium w as administered to the patient and serial radiographs of the abdomen were performe d. COMPARISON STUDY: Small bowel follow-through 10/15/2017, MR enterograph y 09/04/2017 FLUOROSCOPY TIME: 0.5 min utes. 17 images were submitted for review. FINDINGS: T[employer] Worker radiograph of the abdom en demonstrates multiple nondistended loops of air-filled small and large bowel scatter ed throughout the abdomen. Surgical suture material projects over the abdominal rig ht lower quadrant. There are no signs of maddy wel obstruction or evidence of gross pneumoperitoneum. Multiple pelvic basin calcifications suggest phleboliths. Degenerative changes of the lumbar spine . Upon the administration of oral barium contrast, there is prompt opacification of the gastric lumenand proximal small hannah l. Transit to the large bowel occurred at approximately 1 hour. Subsequently, spot fluoroscopic images of the abdomen were obtained and demonstrate freely movable bowel in all four abdominal quadrants. Mildly dilated loops of ileum are noted. No zurdo dence of extravasation or stricture. The termi nal ileum appears unremarkable. IMPRESS ION: 1. Postoperative changes without evid ence of associated small bowel obstruction. 2. Mildly dilated loops of ileum may reflec t decreased small bowel motility. The above report was generated using voice recognition software. It may contain grammatical, syntaxor spelling errors. Electronically signed by: Macario Salas M.D. 11/26/2018 12:21 PM Dictated: 11/26/18 1137 Transcri bed: 11/26/[address] Abd/Pelvis w/o Contrast (No IV, No Laboratory: [facility] Diagnostic Imaging [address]) (Pending) [facility] 27-Nov-2018 13:03 CT ABD/PELVIS NO IV OR ORAL CN [facility] [place], [place] CT Scan Report Patient: RICO ALONSO Admit Date : 07/07 MR#: [id number] Address1: [place] [address] Acct ID:[id number] Addr ess2: Date: [address] [place] [address] Zip: [place], [place] [address] Age: 53 Locati on: ED Sex: M Room/Bed: Att Phy: Diagnosis: abd pain Irina Phy: Pro, Tano Stuart MD Servic e Date: 0 11/27/18 Fam P hy: Luigi Borden M.D. Interpreti ng Ph y: Greyson Salas Admit Phy: Ordering Phy: Jean Pierre Lockhart MD cc: ABDOMEN AND PELVIS CT WITHOUT CONTRAST CT DOSE: 866.98 mGy.cm HISTORY: Acu te postoperative vomiting. Reported history was several weeks prior. History of recent jejunal GIST excision with jejunojejunal anastomosis. vomiting post op eval for obstruction TECHNIQUE: Multiaxial C T images of the abdomen and pelvis were performed without contrast. A dose lowe ring technique was utilized adhering to the principles of ALARA. COMPARISON TU DY: Small bowel follow-through study 11/27/19, MR enterography 09/04/2018, CT 01/17/2018. FINDINGS: Lung bases are generally cl ear. There is no pneumatosis or pneumoperiton eum. Imaged inferior cardiac chambers are unremarkable with minimal coronary arter ial calcifications and trace pericardial effusion. Gallbladder, liver, splee n and adrenal glands are unremarkable. 12 mm c ystic lesion of the pancreatic body redemonstr ated, possibly reflective of a sidebranch IPMN , unchanged from 01/17/2018. There is no pancreatic or biliary ductal dilation identified. There is mild nonspecific bilateral perinephric stranding. Kidneys , ureters, prostate and urinary bladder ar e otherwise unremarkable. Aorta and IVC ar e within normal limits. No adenopathy. There is retained contrast noted through out the large and small bowel from yesterday 's small bowel follow-through study. Hyperd ense material is also noted within the gastri c lumen and duodenum. Thereare several dil ated loops of small bowel about the mid and l ower abdomen and pelvis measuring up to 4.0 c m which demonstrate mild wall thickening, mild perienteric stranding and trace interloo p edema.The large bowel is predominately decompressed. Colonic diverticulosis. Appendix appears noninflamed.Suture mate rial is noted within small bowel of the abdom inal left lower quadrant. This appears to bet he area of transition from dilated to decompressed small bowel (image 271 seri es 3) and also nicelyseen on the coronal and sagittal images. Surgical scar abou t the ventral anterior abdomen. Bones appear t o be intact. There is an unchanged 2.3 cm sclerotic lesion of the proximal left fe mur which is likely benign. Spondylitic spur ring and facet arthrosis of the spine. IMPRESSION: 1. Postoperative pradhan es from a partial small bowel resection wit h jejunal jejunal anastomosis. 2. Sma ll bowel distention with transition point a t the anastomotic site within the left midabdo men suggestive of partial small bowel obstruction. Associated small bowel wall thickening with perienteric inflammation and mild interloop edema is likely reactive. 3. No pneumatosis or pneumoperitoneum identified. 4. Colonic diverticulos is. Electronically signed by: Macario Salas M.D. 11/27/2018 1:24 PM Dictated: 11/27/18 1303 Transcrib ed: 11/27/18 1303 X-ray Abdomen 2 View w/PA Chest Rtn Laboratory: [facility] Diagnostic Imaging [address] (Pending) [facility] 28-Nov-2018 8:00 ABDOMEN 2VIEW W/PA CHEST RTN [place], [place] [phone] XRay Report Patient: RICO ALONSO Admit Date : 07/07 MR#: [id number] Address1: [facility] [address] Acct ID:[id number] Addr ess2: Date: [address] [place] [address] Zip: [place] [id number] Age: 53 Locati on: 3E Sex: M Room/Bed: [facility] Att Ph y: Reg Villegas MD Diagnosis : PA RTIAL SMALL BOWEL OBSTRUCTION Irina Phy: Tano Pete MD Service Date: 0 11/28/18 Fam Phy: Luigi Borden M.D. Interpreting Ph y: Noé Morrison MD Admit Phy: Karen Grajeda MD Ordering Phy: Jean Pierre Grajeda MD cc: XR abdom en 2V w PA chest CLINICAL HISTORY: Bowel obstruction. Follow-up study. COMPARISON STUDY: CT scan dated 11/28/19 FINDINGS: The erect chest reveals no free air. Erect and supine views the abdomen reveal dilated small bowel loops measuri ng up to 4.8 cm in diameter. There are scatter ed small bowel air-fluid levels. There is contrast within nondilated colon. There is barium within a nondilated appendix. The re is colonic diverticulosis. There is a well marginated 24 mm sclerotic lesion within the left proximal femur. IMPRESSION: 1. Radiographic findings consistent with a partial small bowel obstruction 2. No evidence of free intraperitoneal air Electronically signed by: Noé markham M.D. 11/28/2018 8:03 AM Dictat ed: 11/28/18 0800 Transcribed: 0800 Encounters Appointment; Maykel Garrett PA-C 01-Aug-2018 14:30 Encounter Diagnosis: Problem not documented Appointment; Stress, Echocardiogram 1 01-Aug-2018 14:00 Encounter Diagnosis: Problem not documented Appointment; Rico Paulino M.D. 09-Jul-2018 7:30 Encounter Diagnosis: Problem not documented Appointment; Maykel Garrett PA-C 04-Jul-2018 16:00 Encounter Diagnosis: Problem not documented Appointment; Tano Pete M.D. 11-Apr-2018 7:40 Encounter Diagnosis: Problem not documented Appointment; Evangelina De Los Santos PA-C 18-Apr-2017 15:00 Encounter Diagnosis: Problem not documented
== END 2018-12-13 10:40 | disposition home or self-care (01) | DRG 330 ==
LOC: ASU 05:40 → 3E 10:32